=== PATIENT | female | born 1960 | race Caucasian/White ===

== ENCOUNTER 2016-06-06 17:45 | Emergency (ER) | payer OTHER ==
[~2016-06-06] VITALS: Ht 157.5 cm; Wt 106.8 kg
[~2016-06-06 17:45] MED LIST: ATIVAN 0.50.5 MG/TAB PO; ATIVAN 1MG T1 MG/TAB PO; EXCEDRIN MIGRAI1 TAB PO; FLEXERIL10 MG PO; GI COCKTAIL; HCTZ; LISINOPRIL; LORTAB 5/500 501 TAB PO; NAPROSYN PO; NORCO 325 MG-101 TAB PO; PHENERGAN 25 TA25 MG PO; PREVACID 15MG15 M1; PREVACID30 MG PO; PRINIVIL40 MG PO; ZOFRAN ODT4 MG PO
[2016-06-06 17:47] VITALS: PULSE 81; TEMP 98.7
[2016-06-06 18:41] VITALS: BP 134/93
[2016-06-06] MEDS ORDERED: NORCO 325 MG-51 TAB PO (18:48)
[2016-06-06] MEDS ORDERED: FLEXERIL 1010 MG/TAB PO (18:48)
== END 2016-06-06 18:57 | disposition home or self-care (01) ==
LOC: COL.ER 17:45
DX: S39.012A Strain of muscle, fascia and tendon of lower back, initial encounter (principal); X50.0XXA Overexertion from strenuous movement or load, initial encounter; Y93.F2 Activity, caregiving, lifting; I10 Essential (primary) hypertension
CPT/HCPCS: J1885

== ENCOUNTER 2016-06-08 03:04 | Emergency (ER) | payer OTHER ==
[~2016-06-08] VITALS: Ht 157.5 cm; Wt 106.8 kg
[~2016-06-08 03:04] MED LIST changes: +FLEXERIL 1010 MG/TAB PO; +NORCO 325 MG-51 TAB PO
[2016-06-08 03:06] VITALS: TEMP 99.4
[2016-06-08 03:32] LABS: BASO % 0.3 % (0.0-2.0); GRAN # 11.5 (1.4-6.5); GRAN % 87.8 % (42.2-75.2); HEMATOCRIT 43.8 % (37.0-47.0); HEMOGLOBIN 15.1 g/dl (12.5-16.0); LYMPH # 1.1 (1.2-3.4); LYMPH % 8.3 % (20.0-51.0); MEAN CELL VOLUME 85 fl (80.0-100.0); MEAN CORPUSCULAR HEMOGLOBIN 29 pg (27.0-31.0); MEAN CORPUSCULAR HGB CONC 35 g/dl (33.0-37.0); MEAN PLATELET VOLUME 9.3 fl (7.4-10.4); MONO # 0.4 (0.1-0.6); MONO % 3.1 % (1.7-9.3); PLATELET COUNT 343 K/mm3 (130-400); RED BLOOD COUNT 5.14 M/mm3 (4.10-5.30); REDCELL DISTRIBUTION WIDTH-CV 12.4 % (11.5-14.5); WHITE BLOOD COUNT 13.1 K/mm3 (4.8-10.8)
[2016-06-08 03:38] LABS: PROTHROMBIN TIME 11.5 SECONDS (9.7-12.8)
[2016-06-08 03:40] LABS: ADJUSTED CALCIUM 9.3 mg/dL (8.4-10.2); ALANINE AMINOTRANSFERASE 29 U/L (9-52); ALBUMIN 4.8 gm/dL (3.5-5.0); ALKALINE PHOSPHATASE 70 U/L (50-136); ANION GAP 16 mmol/L (7-16); BILIRUBIN,TOTAL 1.2 mg/dL (0.0-1.0); BLOOD UREA NITROGEN 12 mg/dL (7-17); CALCIUM 9.9 mg/dL (8.4-10.2); CARBON DIOXIDE 24 mmol/L (22-30); CHLORIDE 97 mmol/L (98-107); CREATININE, serum 0.59 mg/dL (0.52-1.25); GLUCOSE 131 mg/dL (74-106); POTASSIUM 4.1 mmol/L (3.4-5.0); SODIUM 137 mmol/L (137-145); TOTAL PROTEIN 8.6 gm/dL (6.4-8.2)
[2016-06-08 03:41] LABS: PARTIAL THROMBOPLASTIN TIME 32.9 SECONDS (26.0-37.0)
[2016-06-08 03:51] LABS: TROPONIN-I < 0.012 ng/mL (0.000-0.034)
[2016-06-08 05:14] VITALS: BP 175/97; PULSE 74
== END 2016-06-08 05:25 | disposition home or self-care (01) ==
LOC: COL.ER 03:04
PROVIDERS: Family Medicine
DX: R10.13 Epigastric pain (principal); R07.9 Chest pain, unspecified
CPT/HCPCS: J1170; J2060; J2405; J2550; J7030

== ENCOUNTER 2016-06-24 12:54 | Emergency (ER) | payer OTHER ==
[~2016-06-24] VITALS: Ht 160 cm; Wt 106.8 kg
[2016-06-24 12:57] VITALS: TEMP 97.8
[2016-06-24 13:49] LABS: BASO % 0.3 % (0.0-2.0); EOS % 0.3 % (0-4.0); GRAN # 7.9 (1.4-6.5); GRAN % 81.2 % (42.2-75.2); HEMATOCRIT 44.3 % (37.0-47.0); HEMOGLOBIN 15.7 g/dl (12.5-16.0); LYMPH # 1.3 (1.2-3.4); LYMPH % 13.3 % (20.0-51.0); MEAN CELL VOLUME 83 fl (80.0-100.0); MEAN CORPUSCULAR HEMOGLOBIN 29 pg (27.0-31.0); MEAN CORPUSCULAR HGB CONC 35 g/dl (33.0-37.0); MEAN PLATELET VOLUME 9.4 fl (7.4-10.4); MONO # 0.5 (0.1-0.6); MONO % 4.6 % (1.7-9.3); PLATELET COUNT 274 K/mm3 (130-400); RED BLOOD COUNT 5.35 M/mm3 (4.10-5.30); WHITE BLOOD COUNT 9.7 K/mm3 (4.8-10.8)
[2016-06-24 13:58] LABS: ADJUSTED CALCIUM 9.5 mg/dL (8.4-10.2); ALBUMIN 4.9 gm/dL (3.5-5.0); BILIRUBIN,TOTAL 1.2 mg/dL (0.0-1.0); CALCIUM 10.2 mg/dL (8.4-10.2); CREATININE, serum 0.56 mg/dL (0.52-1.25); POTASSIUM 3.7 mmol/L (3.4-5.0); TOTAL PROTEIN 7.9 gm/dL (6.4-8.2)
[2016-06-24 14:28] LABS: PH 7 (5-8); SQUAMOUS EPITHELIAL 0-2 /hpf; URINE APPEARANCE Hazy; URINE BACTERIA Rare /hpf; URINE BILIRUBIN Negative (NEGATIVE); URINE BLOOD 1+ (NEGATIVE); URINE COLOR Yellow; URINE GLUCOSE Negative (NEGATIVE); URINE KETONE Trace (NEGATIVE); URINE UROBILINOGEN Negative (NEGATIVE)
[2016-06-24] MEDS ORDERED: ZOFRAN ODT4 MG PO (14:37)
[2016-06-24] MEDS ORDERED: PHENERGAN 25 TA25 MG PO (14:37)
[2016-06-24 15:08] VITALS: BP 167/100; PULSE 68
== END 2016-06-24 15:10 | disposition home or self-care (01) ==
LOC: COL.ER 12:54
PROVIDERS: Physician Assistant
DX: G43.A0 Cyclical vomiting, in migraine, not intractable (principal); R10.84 Generalized abdominal pain; I10 Essential (primary) hypertension
CPT/HCPCS: C9113; J1170; J2060; J2405; J2550; J7030

== ENCOUNTER 2016-06-27 03:27 | Inpatient (IN) | payer OTHER ==
[~2016-06-27] VITALS: Ht 160 cm; Wt 115.3 kg
[2016-06-27 03:50] LABS: BASO % 0.4 % (0.0-2.0); EOS % 0.1 % (0-4.0); GRAN # 7.1 (1.4-6.5); GRAN % 71.8 % (42.2-75.2); HEMATOCRIT 42.7 % (37.0-47.0); HEMOGLOBIN 15.1 g/dl (12.5-16.0); LYMPH # 1.9 (1.2-3.4); LYMPH % 18.8 % (20.0-51.0); MEAN CELL VOLUME 83 fl (80.0-100.0); MEAN CORPUSCULAR HEMOGLOBIN 29 pg (27.0-31.0); MEAN CORPUSCULAR HGB CONC 35 g/dl (33.0-37.0); MEAN PLATELET VOLUME 9.3 fl (7.4-10.4); MONO # 0.9 (0.1-0.6); MONO % 8.6 % (1.7-9.3); PLATELET COUNT 244 K/mm3 (130-400); RED BLOOD COUNT 5.13 M/mm3 (4.10-5.30); REDCELL DISTRIBUTION WIDTH-CV 11.9 % (11.5-14.5); WHITE BLOOD COUNT 9.9 K/mm3 (4.8-10.8)
[2016-06-27 04:01] LABS: ADJUSTED CALCIUM 8.4 mg/dL (8.4-10.2); ALBUMIN 4.2 gm/dL (3.5-5.0); BILIRUBIN,TOTAL 1.3 mg/dL (0.0-1.0); CALCIUM 8.6 mg/dL (8.4-10.2); CREATININE, serum 0.68 mg/dL (0.52-1.25); POTASSIUM 3.5 mmol/L (3.4-5.0); TOTAL PROTEIN 6.8 gm/dL (6.4-8.2)
[2016-06-27 04:12] LABS: TROPONIN-I 0.013 ng/mL (0.000-0.034)
[2016-06-27 04:17] LABS: PROLACTIN 14.9 ng/mL (3.0-18.6)
[2016-06-27 05:26] LABS: PH 6 (5-8); URINE APPEARANCE Hazy; URINE BACTERIA None Seen /hpf; URINE BILIRUBIN Negative (NEGATIVE); URINE BLOOD 1+ (NEGATIVE); URINE COLOR Amber; URINE GLUCOSE Negative (NEGATIVE); URINE KETONE Negative (NEGATIVE); URINE UROBILINOGEN >=4.0 mg/dL (NEGATIVE); URINE WBC 20-50 /hpf
[2016-06-27 06:12] VITALS: BP 170/95; PULSE 77; TEMP 98.4
[2016-06-27 08:23] VITALS: BP 144/115; PULSE 87; TEMP 98.8
[2016-06-27 08:59] LABS: PH 7 (5-8); SQUAMOUS EPITHELIAL 0-2 /hpf; URINE APPEARANCE Clear; URINE BACTERIA Occasional /hpf; URINE BILIRUBIN Negative (NEGATIVE); URINE BLOOD 1+ (NEGATIVE); URINE COLOR Yellow; URINE GLUCOSE Negative (NEGATIVE); URINE KETONE Negative (NEGATIVE); URINE UROBILINOGEN Negative (NEGATIVE); URINE WBC 20-50 /hpf
[2016-06-27 09:12] LABS: AMPHETAMINE URINE NEGATIVE; BARBITURATES URINE NEGATIVE; BENZODIAZEPINES URINE POSITIVE; BUPRENORPHINE URINE NEGATIVE; METHADONE URINE NEGATIVE; OPIATES URINE NEGATIVE; OXYCODONE URINE NEGATIVE; PHENCYCLIDINE URINE NEGATIVE; PROPOXYPHENE URINE NEGATIVE; THC CANNABINOIDS URINE NEGATIVE
[2016-06-27 09:30] VITALS: BP 184/108
[2016-06-27 13:26] VITALS: BP 143/97; PULSE 95; TEMP 99
[2016-06-27 16:00] VITALS: BP 181/90; PULSE 82; TEMP 100.7
[2016-06-27 17:35] LABS: CEREBROSPINAL TUBE #4
[2016-06-27 17:36] LABS: CSF APPEARANCE CLEAR; CSF COLOR COLORLESS
[2016-06-27 21:34] VITALS: BP 174/89; PULSE 73; TEMP 98.2
[2016-06-28] VITALS (7 sets, daily range): BP systolic 138–199; BP diastolic 78–104; PULSE 77–112; TEMP 97.3–99.6
[2016-06-28 06:13] LABS: BASO % 0.4 % (0.0-2.0); EOS % 0.2 % (0-4.0); GRAN # 6.5 (1.4-6.5); GRAN % 67.7 % (42.2-75.2); HEMATOCRIT 39.9 % (37.0-47.0); HEMOGLOBIN 14.1 g/dl (12.5-16.0); LYMPH # 2.2 (1.2-3.4); LYMPH % 23.1 % (20.0-51.0); MEAN CELL VOLUME 83 fl (80.0-100.0); MEAN CORPUSCULAR HEMOGLOBIN 29 pg (27.0-31.0); MEAN CORPUSCULAR HGB CONC 35 g/dl (33.0-37.0); MEAN PLATELET VOLUME 9.4 fl (7.4-10.4); MONO # 0.8 (0.1-0.6); MONO % 8.2 % (1.7-9.3); PLATELET COUNT 199 K/mm3 (130-400); REDCELL DISTRIBUTION WIDTH-CV 12.1 % (11.5-14.5); WHITE BLOOD COUNT 9.6 K/mm3 (4.8-10.8)
[2016-06-28 06:40] LABS: ADJUSTED CALCIUM 8.6 mg/dL (8.4-10.2); ALBUMIN 4.1 gm/dL (3.5-5.0); CALCIUM 8.7 mg/dL (8.4-10.2); CREATININE, serum 0.56 mg/dL (0.52-1.25); TOTAL PROTEIN 6.7 gm/dL (6.4-8.2)
[2016-06-28 06:55] LABS: POTASSIUM 2.5 mmol/L (3.4-5.0)
[2016-06-29] VITALS (8 sets, daily range): BP systolic 114–142; BP diastolic 51–89; PULSE 96–143; TEMP 98.4–101.5
[2016-06-30 00:18] VITALS: BP 158/79; PULSE 103; TEMP 100.4
[2016-06-30 01:40] VITALS: TEMP 99.7
[2016-06-30 04:30] VITALS: BP 161/92; PULSE 118; TEMP 98.2
[2016-06-30 08:30] VITALS: BP 141/88; PULSE 120; TEMP 98.1
[2016-06-30 12:04] VITALS: BP 149/86; PULSE 101; TEMP 97.8
[2016-06-30 23:36] VITALS: BP 148/74; PULSE 115; TEMP 98.7
[2016-07-01 03:58] VITALS: BP 153/98; PULSE 127; TEMP 98.2
[2016-07-01 08:12] VITALS: BP 132/74; PULSE 132; TEMP 98.6
[2016-07-01 11:54] VITALS: BP 150/75; PULSE 127; TEMP 98.2
[2016-07-01 16:00] VITALS: BP 151/88; PULSE 108; TEMP 97.9
[2016-07-01 19:10] VITALS: BP 157/90; PULSE 129; TEMP 98.5
[2016-07-01 22:57] VITALS: BP 160/99; PULSE 138; TEMP 98.7
[2016-07-02 03:44] VITALS: BP 139/75; PULSE 137; TEMP 98.7
[2016-07-02 05:02] LABS: ANA SCREEN with REFLEX Negative (Negative)
[2016-07-02 08:25] VITALS: BP 140/90; PULSE 128; TEMP 98.3
[2016-07-02 11:43] VITALS: BP 141/82; PULSE 120; TEMP 98
[2016-07-02 16:45] VITALS: BP 138/80; PULSE 112; TEMP 98.4
[2016-07-02 19:14] VITALS: BP 156/97; PULSE 112; TEMP 98.1
[2016-07-03] VITALS (10 sets, daily range): BP systolic 114–202; BP diastolic 41–130; PULSE 77–132; TEMP 97.9–99.2
[2016-07-04] VITALS (7 sets, daily range): BP systolic 129–160; BP diastolic 70–98; PULSE 103–133; TEMP 97.7–98.7
[2016-07-05] VITALS (7 sets, daily range): BP systolic 134–173; BP diastolic 74–95; PULSE 100–129; TEMP 97.9–98.3
[2016-07-06] VITALS (7 sets, daily range): BP systolic 102–153; BP diastolic 65–99; PULSE 92–119; TEMP 96.9–98.7
[2016-07-07 04:30] VITALS: BP 123/80; PULSE 88; TEMP 98.6
[2016-07-07 07:54] VITALS: BP 145/87; PULSE 101; TEMP 98.1
[2016-07-07 11:47] VITALS: BP 130/68; PULSE 96; TEMP 98.3
[2016-07-07 16:05] VITALS: BP 167/96; PULSE 88; TEMP 98.4
[2016-07-07 20:22] VITALS: BP 158/94; PULSE 99; TEMP 97.8
[2016-07-08 00:43] VITALS: BP 151/89; PULSE 102; TEMP 98.4
[2016-07-08 04:34] VITALS: BP 152/88; PULSE 107; TEMP 97.5
[2016-07-08 07:56] VITALS: BP 161/102; PULSE 112; TEMP 98.5
[2016-07-08 15:02] VITALS: BP 143/87; PULSE 106; TEMP 98.4
== END 2016-07-08 16:00 | disposition home or self-care (01) | DRG 98 ==
LOC: COL.ER 03:27 → MEDICAL 05:11
PROVIDERS: Emergency Medicine; Internal Medicine; Internal Medicine Gastroenterology; Internal Medicine Infectious Disease
PROC: B01B1ZZ Fluoroscopy of Spinal Cord using Low Osmolar Contrast (ICD-10-PCS; 2016-06-27)
PROC: 0DB68ZX Excision of Stomach, Via Natural or Artificial Opening Endoscopic, Diagnostic (ICD-10-PCS; 2016-06-27)
PROC: 009U3ZX Drainage of Spinal Canal, Percutaneous Approach, Diagnostic (ICD-10-PCS; principal; 2016-06-27 12:00)
DX: A86 Unspecified viral encephalitis (principal); E87.2 Acidosis; E87.1 Hypo-osmolality and hyponatremia; N39.0 Urinary tract infection, site not specified; E44.0 Moderate protein-calorie malnutrition; I10 Essential (primary) hypertension; E87.6 Hypokalemia; K25.7 Chronic gastric ulcer without hemorrhage or perforation
CPT/HCPCS: 99223-AI; 99231-AI; 99232-AI; 99233-AI; 99239; A9585; C1751; C1894; C9113; J0133; J0360; J0696; J0744; J0780; J1170; J1644; J1885; J2060; J2250; J2270; J2405; J2550; J3010; J3370; J3480; J7030; J7040; J7050; Q9967

== ENCOUNTER → 2017-11-12 | Outpatient (CLI) | payer SELFPAY ==
[2017-11-12 15:40] LABS: HEMOGLOBIN 14.8 g/dl (12.5-16.0); MEAN CELL VOLUME 86 fl (80.0-100.0); MEAN CORPUSCULAR HEMOGLOBIN 30 pg (27.0-31.0); MEAN CORPUSCULAR HGB CONC 34 g/dl (33.0-37.0); MEAN PLATELET VOLUME 9.6 fl (7.4-10.4); PLATELET COUNT 310 K/mm3 (130-400); RED BLOOD COUNT 5.01 M/mm3 (4.10-5.30); REDCELL DISTRIBUTION WIDTH-CV 12.3 % (11.5-14.5)
[2017-11-12 15:47] LABS: ALBUMIN 4.4 gm/dL (3.5-5.0); BILIRUBIN,TOTAL 0.8 mg/dL (0.0-1.0); CALCIUM 9.7 mg/dL (8.4-10.2); CREATININE, serum 0.65 mg/dL (0.52-1.25); POTASSIUM 4.4 mmol/L (3.4-5.0); TOTAL PROTEIN 7.6 gm/dL (6.4-8.2)
== END ==
LOC: ZCOL.LAB 15:30
DX: I10 Essential (primary) hypertension (principal)